=== PATIENT | female | born 1990 | race Caucasian/White ===

== ENCOUNTER 2017-11-04 15:34 | Emergency (ER) | payer SELFPAY ==
[~2017-11-04] VITALS: Ht 149.9 cm; Wt 52.0 kg
[2017-11-04 15:36] VITALS: BP 138/92; PULSE 110; RESP 18; TEMP 98; O2SAT 97
--- NOTE | 2017-11-04 16:23 | PD ---
HPI Chief Complaint: Pain: Acute or Chronic Time Seen by Provider: 16:09 Travel History International Travel<30 days: No Contact w/Intl Traveler<30days: No Traveled to known affect area: No History of Present Illness HPI The patient was seen and examined in the presence of the nurse. This patient complains of pelvic pain. Location is left lower quadrant. Duration 5 days. Severity is moderate. She does report some degree of vaginal discharge. No bleeding. She is not using control. Denies fever or diarrhea or vomiting. No alleviating factors. No Exacerbating factors. PFSH Past Medical History ?: Unknown LMP: 10/20/17 Social History Alcohol Use: No Tobacco Use: No Substance Use: No Allergies-Medications (Allergen,Severity, Reaction): Coded Allergies: No Known Allergies (Unverified , 11/04/17) Review of Systems General / Constitutional: No: Fever Eyes: No: Visual changes HENT: No: Headaches Cardiovascular: No: Chest Pain or Discomfort Respiratory: No: Shortness of Breath Gastrointestinal: Positive: Abdominal Pain Genitourinary: Positive: Pelvic Pain, No: Dysuria Musculoskeletal: No: Pain Skin: No Rash Neurologic: No: Weakness Psychiatric: No: Depression Endocrine: No: Polydipsia Hematologic/Lymphatic: No: Easy Bruising Physical Exam Narrative GENERAL: Well-nourished, well-developed patient in no apparent distress. SKIN: Focused skin assessment reveals no rash and nodules. Skin is Warm and dry. HEAD: Atraumatic. Normocephalic. EYES: Pupils equal and round. No scleral icterus. No injection or drainage. ENT: No nasal bleeding or discharge. Mucous membranes pink and moist. NECK: Trachea midline. No JVD. CARDIOVASCULAR: Regular rate and rhythm. No murmur appreciated. RESPIRATORY: No accessory muscle use. Clear to auscultation. Breath sounds equal bilaterally. GASTROINTESTINAL: Abdomen soft, left lower quadrant is tender without rebound or guarding , nondistended. Hepatic and splenic margins not palpable. MUSCULOSKELETAL: No obvious deformities. No clubbing. No cyanosis. No edema. NEUROLOGICAL: Awake and alert. No obvious cranial nerve deficits. Motor grossly within normal limits. Normal speech. PSYCHIATRIC: Appropriate mood and affect; insight and judgment normal. Pelvic: No blood. Very scant nonspecific green discharge. No cervical motion tenderness. No lesions. Vague left adnexal area discomfort on palpation but mild Data Data Last Documented VS Vital Signs Date Time Temp Pulse Resp B/P (MAP) Pulse Ox O2 Delivery O2 Flow Rate FiO2 11/04/17 16:17 18 11/04/17 15:36 98.0 110 138/92 (107) 97 Orders Orders Ed Urine Pregnancytest Poc (11/04/17 16:21) Gc And Chlamydia Pcr (11/04/17 16:30) Wet Prep Profile (11/04/17 16:30) Oxycodone-Acetamin 5-325 Mg (Percocet (11/04/17 17:00) Ondansetron Odt (Zofran Odt) (11/04/17 17:15) Labs Laboratory Tests Test 11/04/17 16:30 Clue Cells (Wet Prep) NONE SEEN Vaginal Trichomonas (Wet Prep) NONE SEEN Vaginal Yeast (Wet Prep) NONE SEEN MDM Medical Decision Making Medical Screen Exam Complete: Yes Emergency Medical Condition: Yes Medical Record Reviewed: Yes Differential Diagnosis Differential diagnosis includes PID, ectopic , ovarian cyst, ovarian torsion, endometriosis. Narrative Course I have reviewed the patient's electronic medical record. Urine is negative GC chlamydia sent Wet prep is negative Patient has a soft benign abdomen No sign of PID on exam 2 pain pills given Zofran given Her pelvic pain is nonspecific. Stable for outpatient follow-up. Diagnosis Primary Impression: Pelvic pain in female Additional Instructions: The patient was advised to follow up with their physician and return if they worsen. The patient was warned about potential sedation for the medications they will receive on prescription. Med/Other Pt SpecificInfo: Prescription(s) given Scripts Ondansetron (Zofran) 4 Mg Tab 4 MG PO Q6HR Y for NAUSEA OR VOMITING, #14 TAB 0 Refills Prov: Isaac Roberts MD 11/04/17 Tramadol (Tramadol) 50 Mg Tab 50 MG PO Q6H Y for PAIN, #20 TAB 0 Refills Prov: Isaac Roberts MD 11/04/17 Disposition: 01 DISCHARGE HOME Condition: Stable Isaac Roberts MD Nov 04, 2017 16:23
[2017-11-04] MEDS ORDERED: oxyCODONE/ACETAMINOPHEN 5 MG/325 MG TAB PO ONE (17:00)
[2017-11-04] MEDS ORDERED: ONDANSETRON ODT 4 MG TAB PO ONE (17:15)
[2017-11-04] MEDS ORDERED: ZOFR4TAB PO (18:15)
[2017-11-04] MEDS ORDERED: TRAM50TA PO (18:15)
[2017-11-04 18:16] VITALS: RESP 18
[2017-11-04 19:15] LABS: CHLAMYDIA PCR NOT DETECTED (NOT DETECT); NEISSERIA PCR NOT DETECTED (NOT DETECT)
== END 2017-11-04 18:36 | disposition home or self-care (01) ==
LOC: NEPC 15:34
DX: R10.2 Pelvic and perineal pain (principal); N89.8 Other specified noninflammatory disorders of vagina
CPT/HCPCS: 84703; 87210; 87491; 87591; 99284